=== PATIENT | male | born 1990 | race Caucasian/White ===

== ENCOUNTER 2016-10-20 10:54 | Emergency (ER) | payer OTHER ==
[~2016-10-20] VITALS: Ht 180.3 cm; Wt 59.0 kg
[2016-10-20 10:58] VITALS: BP 134/92
--- NOTE | 2016-10-20 11:53 | ED HAND/WRIST INJURY COMPLAINT ---
History of Present Illness General Chief Complaint: Laceration Procedure Stated Complaint: LAC TO LFT FINGER Source: patient, old records Exam Limitations: no limitations Vital Signs & Intake/Output Vital Signs & Intake/Output Vital Signs Date Time Temp Pulse Resp B/P Pulse O2 O2 Flow FiO2 Ox Delivery Rate 10/20 1058 95.8 108 16 134/92 97 Room Air Allergies Coded Allergies: NO KNOWN ALLERGIES (01/01/12) Reconcile Medications No Known Home Medications Triage Note: 26 Y/O MALE C/O LACERATION TO L 4TH FINGER, CUT ON KITCHEN KNIFE. PT STATES IT WONT STOP BLEEDING. DRESSING IN PLACE. UNKNOWN LAST TETANUS. Triage Nurses Notes Reviewed? yes Occurred: just prior to arrival Duration: hour(s): (1), constant Timing: recent history Injury Environment: home Severity: mild Severity Numbers: 4 Pain/Injury Location: Left: 4th finger. Context: laceration Method of Injury: laceration No Modifying Factors: none Associated Symptoms: none HPI: 26-year-old male right-hand dominant presents after sustaining injury to his left fourth finger 1 hour prior to arrival when he accidentally cut it on a knife. He denies any difficulty with range motion of finger no numbness or tingling is not taken anything for his symptoms and is declining anything when offered. There was no other injury. His last tetanus unknown there are no modifying factors or associated symptoms otherwise (LILY ARIAS) Past History Travel History Traveled to [place] past 21 day No Medical History Any Pertinent Medical History? 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 No (LILY ARIAS) Review of Systems Review of Systems Constitutional: Reports: see HPI. All Other Systems: Reviewed and Negative Comments Review of systems: See HPI, All other systems negative. Constitutional, no chills no fever, no malaise HEENT: No visual changes no sore throat no congestion Cardiovascular: No chest pain , no palpitation Skin, no rashes, no change in skin Respiratory: No dyspnea no cough no sputum GI: No nausea no vomiting, no diarrhea, : No dysuria No hematuria Muscle skeletal: No joint pain, no back pain, no neck pain, Neurologic: No numbness no headache Psych: No stress Heme/endocrine: No bruising no bleeding Immunology: No lymphadenopathy (LILY ARIAS) Physical Exam Physical Exam General Appearance: well developed/nourished, no apparent distress, alert, awake Hand Left: 4th finger Hand Right: normal inspection, normal range of motion Comments: Well-developed well-nourished patient in no apparent distress. HEENT: Atraumatic, extraocular motion intact Neck: Supple, FROM, Back: FROM, Cardiovascular: Regular rate and rhythms no murmurs Respiratory: No respiratory distress. Patient speaking in full complete sentences. Shoulder: Atraumatic/Stable. FROM . Elbow: Atraumatic/stable. FROM. No laxity Upper arm/Forearm: Atraumatic. Nontender. 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 Brisk cap refill Neuro: Alert and oriented x3 Skin: Warm & dry;No appreciable rash on exposed skin Psych: Mood affect normal, normal memory normal judgment. (LILY ARIAS) Progress Differential Diagnosis: cellulitis, contusion, compartment syndrome, dislocation , fracture, sprain Plan of Care: The wound was thoroughly irrigated with normal saline Betadine peroxide. Dermabond was applied sterile dressing was applied discussed the patient need to look out for any concerns of infection, discussed the possibility of foreign body not seen on examination still exist return anytime sooner with any concerns she feels comfortable plan cleared for discharge (LILY ARIAS) Departure Departure Time of Disposition: 1153 Disposition: HOME OR SELF CARE Condition: Stable Clinical Impression Primary Impression: Finger laceration Referrals: PATIENT HAS NO PRIMARY CARE DR (PCP/Family) Additional Instructions: The Dermabond will dissolve on its own. Keep finger clean and covered. Return with any concerns or signs of infection: Redness warmth swelling discharge fever or chills Departure Forms: Customer Survey General Discharge Information Prescriptions: Current Visit Scripts No Known Home Medications (LILY ARIAS) PA/AUTOMOTIVE ENGINEERING TECHNICIAN Co-Sign Statement Statement: ED Attending supervision documentation- [] I saw and evaluated the patient. I have also reviewed all the pertinent lab results and diagnostic results. I agree with the findings and the plan of care as documented in the PA's/AUTOMOTIVE ENGINEERING TECHNICIAN's documentation. [X] I have reviewed the ED Record and agree with the PA's/AUTOMOTIVE ENGINEERING TECHNICIAN's documentation. [] Additions or exceptions (if any) to the PAs/AUTOMOTIVE ENGINEERING TECHNICIAN's note and plan are summarized below: [] (KAIN MATA DO) Procedures Laceration/Wound Repair Laceration/Wound Repair: Wound Location: left 4th finger Wound's Depth, Shape: linear, superficial Wound Length (cm): 1 Wound Explored: clean, no foreign body removed, irrigated extensively Irrigated w/ Saline (ccs): 100 Betadine Prep? Yes Wound Repaired With: Dermabond Layer Closure? No Sterile Dressing Applied: Yes Tetanus Status: up to date (LILY ARIAS)
== END 2016-10-20 11:57 ==
LOC: ERH 10:54
DX: S61.215A Laceration without foreign body of left ring finger without damage to nail, initial encounter (principal); W26.0XXA Contact with knife, initial encounter
CPT/HCPCS: 90471; 90714